=== PATIENT | female | born 1980 | race Caucasian/White ===

== ENCOUNTER → 2018-05-14 10:17 | Outpatient (CLI) | payer OTHER ==
[~2018-05-14 10:17] MED LIST: GILTUSS TR TAB1 EACH PO; SYNTHROID100 MCG; SYNTHROID100 MCG PO; SYNTHROID112 MCG PO; ZANTAC300 MG PO; ZITHROMAX TRI-500 MG PO; ZITHROMAX500 MG PO; ZYRTEC10 MG PO
== END | disposition home or self-care (01) ==
LOC: LAB 10:17
DX: E55.9 Vitamin D deficiency, unspecified (principal); E78.4 Other hyperlipidemia; Z13.9 Encounter for screening, unspecified; R73.9 Hyperglycemia, unspecified; R94.6 Abnormal results of thyroid function studies

== ENCOUNTER 2018-06-28 09:04 | Outpatient (CLI) | payer OTHER | END 2018-06-28 09:46 | disposition home or self-care (01) | LOC: SONOGRAMA 09:04 | DX: N63.41 Unspecified lump in right breast, subareolar (principal); N60.11 Diffuse cystic mastopathy of right breast; N60.12 Diffuse cystic mastopathy of left breast ==

== ENCOUNTER 2018-12-27 08:36 | Outpatient (CLI) | payer OTHER ==
[~2018-12-27] VITALS: Ht 152.4 cm; Wt 63.5 kg
== END 2018-12-27 09:00 | disposition home or self-care (01) ==
LOC: OFIC 805 08:36
DX: H61.23 Impacted cerumen, bilateral (principal); J01.80 Other acute sinusitis

== ENCOUNTER 2019-12-30 06:19 | Outpatient (CLI) | payer OTHER | END 2019-12-30 06:30 | disposition home or self-care (01) | LOC: LAB 06:19 | DX: G43.019 Migraine without aura, intractable, without status migrainosus (principal); E06.3 Autoimmune thyroiditis; E04.2 Nontoxic multinodular goiter; D50.0 Iron deficiency anemia secondary to blood loss (chronic); E55.9 Vitamin D deficiency, unspecified; E56.8 Deficiency of other vitamins; N92.1 Excessive and frequent menstruation with irregular cycle ==

== ENCOUNTER 2020-01-28 09:12 | Outpatient (CLI) | payer OTHER | END 2020-01-28 09:22 | disposition home or self-care (01) | LOC: LAB 09:12 | DX: J11.1 Influenza due to unidentified influenza virus with other respiratory manifestations (principal); R05 Cough ==

== ENCOUNTER 2020-01-28 10:54 | Emergency (ER) | payer OTHER ==
[~2020-01-28] VITALS: Ht 154.9 cm; Wt 63.5 kg
== END 2020-01-28 12:36 | disposition home or self-care (01) ==
LOC: ER 10:54
DX: N93.8 Other specified abnormal uterine and vaginal bleeding (principal)

== ENCOUNTER 2020-01-30 08:26 | Outpatient (CLI) | payer OTHER | END 2020-01-30 08:49 | disposition home or self-care (01) | LOC: LAB 08:26 | DX: R00.0 Tachycardia, unspecified (principal) ==

== ENCOUNTER → 2020-01-30 | Emergency (ER) | payer OTHER | END | disposition left against medical advice (07) | LOC: ER 09:45 | DX: Z53.20 Procedure and treatment not carried out because of patient's decision for unspecified reasons (principal) ==

== ENCOUNTER 2020-02-03 09:08 | Outpatient (CLI) | payer OTHER | END 2020-02-03 09:17 | disposition home or self-care (01) | LOC: LAB 09:08 | DX: D64.89 Other specified anemias (principal) ==

== ENCOUNTER 2020-03-01 05:29 | Day surgery (SDC) | payer OTHER ==
[~2020-03-01] VITALS: Ht 154.9 cm; Wt 63.5 kg
--- NOTE | 2020-03-01 05:35 | NUR ---
SE RECIBE PACIENTE ALERTA Y ORIENTADA REFIERE VENIR A [place] DE EMERGENCIA REFERIDA POR EL INDICA EL DR. MITCHELL REALIZARA UN RASPE EL AYO DE HO. PACINETE REFIERE TENER SANGRADO VAGINAL DESDE EL 2019. AL MOMENTO PACIENTE NO PRESENTA DOLOR.
[2020-03-01] MEDS ORDERED: MEGESTROL ACETA40 MG PO (09:37)
[2020-03-01] MEDS ORDERED: INTEGRA PLUS C1 EACH PO (09:37)
== END 2020-03-01 09:00 | disposition home or self-care (01) ==
LOC: ER 05:29 → CIR.AMB 05:30 → O/R 05:51 → ER 05:51 → SEC-K 05:51 → CIR.AMB 09:00 → EDSTATUS 10:00 → SEC-K 10:33 → O/R 10:33
DX: D26.1 Other benign neoplasm of corpus uteri (principal)

== ENCOUNTER → 2020-06-02 06:09 | Outpatient (CLI) | payer OTHER ==
[~2020-06-02 06:09] MED LIST changes: +INTEGRA PLUS C1 EACH PO; +MEGESTROL ACETA40 MG PO
== END | disposition home or self-care (01) ==
LOC: LAB 06:09
PROVIDERS: ATTEND General Practice
DX: E04.2 Nontoxic multinodular goiter (principal); E06.3 Autoimmune thyroiditis; D50.0 Iron deficiency anemia secondary to blood loss (chronic); E55.9 Vitamin D deficiency, unspecified; E56.8 Deficiency of other vitamins; N92.1 Excessive and frequent menstruation with irregular cycle

== ENCOUNTER 2020-12-01 06:16 | Outpatient (CLI) | payer OTHER | END 2020-12-01 06:26 | disposition home or self-care (01) | LOC: LAB 06:16 | PROVIDERS: ATTEND Obstetrics & Gynecology | DX: E03.8 Other specified hypothyroidism (principal); I10 Essential (primary) hypertension; Z00.00 Encounter for general adult medical examination without abnormal findings; E78.00 Pure hypercholesterolemia, unspecified; N39.0 Urinary tract infection, site not specified; Z11.4 Encounter for screening for human immunodeficiency virus [HIV]; E55.9 Vitamin D deficiency, unspecified; Z21 Asymptomatic human immunodeficiency virus [HIV] infection status; R79.89 Other specified abnormal findings of blood chemistry ==

== ENCOUNTER → 2020-12-02 06:12 | Outpatient (CLI) | payer OTHER | END | disposition home or self-care (01) | LOC: LAB 06:12 | PROVIDERS: ATTEND Obstetrics & Gynecology | DX: E03.8 Other specified hypothyroidism (principal); E78.00 Pure hypercholesterolemia, unspecified; N39.0 Urinary tract infection, site not specified; Z00.00 Encounter for general adult medical examination without abnormal findings; I10 Essential (primary) hypertension; Z11.4 Encounter for screening for human immunodeficiency virus [HIV]; Z12.11 Encounter for screening for malignant neoplasm of colon; E55.9 Vitamin D deficiency, unspecified; Z21 Asymptomatic human immunodeficiency virus [HIV] infection status; R79.89 Other specified abnormal findings of blood chemistry ==

== ENCOUNTER → 2021-03-08 06:16 | Outpatient (CLI) | payer OTHER ==
[~2021-03-08 06:16] MED LIST changes: +LIPITOR20 MG; +ORTHO DF 3,7751 EACH
== END | disposition home or self-care (01) ==
LOC: LAB 06:16
PROVIDERS: ATTEND Obstetrics & Gynecology
DX: D64.9 Anemia, unspecified (principal)

== ENCOUNTER 2021-03-19 10:06 | Emergency (ER) | payer OTHER ==
[~2021-03-19] VITALS: Ht 154.9 cm; Wt 64.4 kg
[~2021-03-19 10:06] MED LIST changes: -LIPITOR20 MG; -ORTHO DF 3,7751 EACH
[2021-03-19] MEDS ORDERED: ORTHO DF 3,7751 EACH (10:19)
[2021-03-19] MEDS ORDERED: LIPITOR20 MG (10:19)
== END 2021-03-19 12:33 | disposition home or self-care (01) ==
LOC: ER 10:06
DX: S90.02XA Contusion of left ankle, initial encounter (principal); W10.8XXA Fall (on) (from) other stairs and steps, initial encounter; Y93.89 Activity, other specified; Y92.830 Public park as the place of occurrence of the external cause; Y99.8 Other external cause status

== ENCOUNTER → 2021-03-30 07:31 | Outpatient (CLI) | payer OTHER ==
[~2021-03-30 07:31] MED LIST changes: +LIPITOR20 MG; +ORTHO DF 3,7751 EACH
== END | disposition home or self-care (01) ==
LOC: LAB 07:31
DX: U07.1 COVID-19 (principal); Z11.52 Encounter for screening for COVID-19; Z20.828 Contact with and (suspected) exposure to other viral communicable diseases

== ENCOUNTER → 2021-05-27 06:10 | Outpatient (CLI) | payer OTHER | END | disposition home or self-care (01) | LOC: LAB 06:10 | PROVIDERS: ATTEND General Practice | DX: E06.3 Autoimmune thyroiditis (principal); E04.2 Nontoxic multinodular goiter; D50.0 Iron deficiency anemia secondary to blood loss (chronic); E55.9 Vitamin D deficiency, unspecified; E56.8 Deficiency of other vitamins; N92.1 Excessive and frequent menstruation with irregular cycle ==

== ENCOUNTER 2022-05-26 06:43 | Outpatient (CLI) | payer OTHER ==
[~2022-05-26 06:43] MED LIST changes: +ACETAMINOPHEN500 M1 PO; +ATORVASTATIN CA10 MG PO; +CLEOCIN HCL300 MG PO; +CODE1TAB37 PO; +LIPITOR20 MG PO; +NEURONTIN600 MG PO; +SIMETHICONE125 M1 PO; +VITAMIN D PO; +VITAMIN D3125 MCG
== END 2022-05-26 07:05 | disposition home or self-care (01) ==
LOC: LAB 06:43
PROVIDERS: ATTEND General Practice
DX: E06.3 Autoimmune thyroiditis (principal); E04.2 Nontoxic multinodular goiter; D50.0 Iron deficiency anemia secondary to blood loss (chronic); E55.9 Vitamin D deficiency, unspecified; E56.8 Deficiency of other vitamins; N92.1 Excessive and frequent menstruation with irregular cycle

== ENCOUNTER 2022-10-19 06:07 | Outpatient (CLI) | payer OTHER | END 2022-10-19 06:09 | disposition home or self-care (01) | LOC: LAB 06:07 | PROVIDERS: ATTEND General Practice | DX: R73.01 Impaired fasting glucose (principal); E06.3 Autoimmune thyroiditis; E04.2 Nontoxic multinodular goiter; D50.0 Iron deficiency anemia secondary to blood loss (chronic); E55.9 Vitamin D deficiency, unspecified; E56.8 Deficiency of other vitamins; N92.1 Excessive and frequent menstruation with irregular cycle; Z13.1 Encounter for screening for diabetes mellitus; N95.1 Menopausal and female climacteric states ==

== ENCOUNTER 2023-04-13 06:08 | Outpatient (CLI) | payer OTHER | END 2023-04-13 06:11 | disposition home or self-care (01) | LOC: LAB 06:08 | PROVIDERS: ATTEND Obstetrics & Gynecology | DX: Z00.00 Encounter for general adult medical examination without abnormal findings (principal); I10 Essential (primary) hypertension; E03.9 Hypothyroidism, unspecified; E78.00 Pure hypercholesterolemia, unspecified; N39.0 Urinary tract infection, site not specified; Z11.4 Encounter for screening for human immunodeficiency virus [HIV]; Z12.11 Encounter for screening for malignant neoplasm of colon; E55.9 Vitamin D deficiency, unspecified; Z21 Asymptomatic human immunodeficiency virus [HIV] infection status; R79.9 Abnormal finding of blood chemistry, unspecified; R79.89 Other specified abnormal findings of blood chemistry ==

== ENCOUNTER 2023-04-18 06:34 | Outpatient (CLI) | payer OTHER | END 2023-04-18 06:50 | disposition home or self-care (01) | LOC: LAB 06:34 | PROVIDERS: ATTEND Obstetrics & Gynecology | DX: Z12.11 Encounter for screening for malignant neoplasm of colon (principal); Z00.00 Encounter for general adult medical examination without abnormal findings; I10 Essential (primary) hypertension; E03.9 Hypothyroidism, unspecified; Z11.4 Encounter for screening for human immunodeficiency virus [HIV]; E55.9 Vitamin D deficiency, unspecified; Z21 Asymptomatic human immunodeficiency virus [HIV] infection status; R79.89 Other specified abnormal findings of blood chemistry ==

== ENCOUNTER → 2023-12-04 06:25 | Outpatient (CLI) | payer OTHER ==
[2023-12-04 07:13] LABS: HEMOGLOBIN 13.6 g/dL (12.0-15.00); MEAN CELL VOLUME 90.4 fL (80.00-100.00); MEAN CORPUSCULAR HEMOGLOBIN 30.8 pg (27.00-32.0); MEAN CORPUSCULAR HGB CONC 34.1 g/dl (32.0-36.0); PLATELET COUNT 201 K/uL (150-450); RED BLOOD COUNT 4.43 M/uL (4.00-6.00); RED CELL DISTRIBUTION WIDTH 13.8 % (11.5-14.5)
[2023-12-04 07:41] LABS: ALBUMIN 3.5 gm/dL (3.4-5.0); BILIRUBIN TOTAL 0.39 mg/dL (0.3-1.2); CALCIUM 8.8 mg/dL (8.5-10.1); CHOL HDL RATIO 3.3 (0-5.0); CREATININE SERUM 0.61 mg/dL (0.55-1.02); GFR 106.06; GLOBULINA 3.1 G/DL (2.4-3.5); POTASSIUM 3.79 mEq/L (3.5-5.1); T4 FREE 1.02 NG/ML (0.76-1.46); TOTAL PROTEIN 6.6 gm/dL (6.4-8.2); TSH 1.1 uIU/mL (0.358-3.74)
== END | disposition home or self-care (01) ==
LOC: LAB 06:25
PROVIDERS: ATTEND General Practice
DX: R73.01 Impaired fasting glucose (principal); E06.3 Autoimmune thyroiditis; E04.2 Nontoxic multinodular goiter; D50.0 Iron deficiency anemia secondary to blood loss (chronic); E55.9 Vitamin D deficiency, unspecified; E56.8 Deficiency of other vitamins; N92.1 Excessive and frequent menstruation with irregular cycle; Z13.1 Encounter for screening for diabetes mellitus; N95.1 Menopausal and female climacteric states

== ENCOUNTER 2024-07-01 06:40 | Outpatient (CLI) | payer OTHER ==
[2024-07-01 07:32] LABS: HEMATOCRIT 39.3 % (36.0-45.00); HEMOGLOBIN 13.5 g/dL (12.0-15.00); MEAN CELL VOLUME 90.4 fL (80.00-100.00); MEAN CORPUSCULAR HGB CONC 34.3 g/dl (32.0-36.0); PLATELET COUNT 218 K/uL (150-450); RED BLOOD COUNT 4.34 M/uL (4.00-6.00); RED CELL DISTRIBUTION WIDTH 13.6 % (11.5-14.5)
[2024-07-01 07:34] LABS: PH,URINE 6.5 (5.0-8.0); URINE APPEARANCE Clear; URINE BILIRRUBIN Negative (NEGATIVE); URINE BLOOD Negative; URINE COLOR Yellow; URINE GLUCOSE Negative (NEGATIVE); URINE KETONE Negative (NEGATIVE); URINE LEUKOCYTE Negative; URINE NITRATE Negative; URINE PROTEIN Negative (NEGATIVE); URINE UROBILINOGEN 0.2 E.U./dl
[2024-07-01 07:38] LABS: URINE BACTERIA 56.6 uL (0.0-1933); URINE RBC 3.8 uL (0.0-20.8)
[2024-07-01 08:23] LABS: ALBUMIN 3.6 gm/dL (3.4-5.0); BILIRUBIN TOTAL 0.45 mg/dL (0.3-1.2); CALCIUM 8.7 mg/dL (8.5-10.1); CHOL HDL RATIO 3.7 (0-5.0); CREATININE SERUM 0.65 mg/dL (0.55-1.02); GFR 98.13; POTASSIUM 4.14 mEq/L (3.5-5.1); T4 FREE 1.04 NG/ML (0.76-1.46); TOTAL PROTEIN 6.6 gm/dL (6.4-8.2)
== END 2024-07-01 07:17 | disposition home or self-care (01) ==
LOC: LAB 06:40
PROVIDERS: ATTEND Obstetrics & Gynecology
DX: E03.9 Hypothyroidism, unspecified (principal); E78.00 Pure hypercholesterolemia, unspecified; N39.0 Urinary tract infection, site not specified; Z11.4 Encounter for screening for human immunodeficiency virus [HIV]; Z12.11 Encounter for screening for malignant neoplasm of colon; E55.9 Vitamin D deficiency, unspecified; Z21 Asymptomatic human immunodeficiency virus [HIV] infection status; R79.9 Abnormal finding of blood chemistry, unspecified; R79.89 Other specified abnormal findings of blood chemistry; Z00.00 Encounter for general adult medical examination without abnormal findings; R10.13 Epigastric pain; R14.1 Gas pain

== ENCOUNTER 2024-07-08 06:03 | Outpatient (CLI) | payer OTHER ==
[2024-07-08 06:18] LABS: ob NEGATIVE (NEGATIVE)
== END 2024-07-08 06:08 | disposition home or self-care (01) ==
LOC: LAB 06:03
PROVIDERS: ATTEND Obstetrics & Gynecology
DX: E03.9 Hypothyroidism, unspecified (principal); I10 Essential (primary) hypertension; Z00.00 Encounter for general adult medical examination without abnormal findings; E78.00 Pure hypercholesterolemia, unspecified; N39.0 Urinary tract infection, site not specified; Z11.4 Encounter for screening for human immunodeficiency virus [HIV]; Z12.11 Encounter for screening for malignant neoplasm of colon; E55.9 Vitamin D deficiency, unspecified; Z21 Asymptomatic human immunodeficiency virus [HIV] infection status; R79.9 Abnormal finding of blood chemistry, unspecified; R79.89 Other specified abnormal findings of blood chemistry

== ENCOUNTER 2024-12-05 06:21 | Outpatient (CLI) | payer OTHER ==
[2024-12-05 07:00] LABS: HEMATOCRIT 40.3 % (36.0-45.00); HEMOGLOBIN 13.9 g/dL (12.0-15.00); MEAN CELL VOLUME 89.4 fL (80.00-100.00); MEAN CORPUSCULAR HEMOGLOBIN 30.8 pg (27.00-32.0); MEAN CORPUSCULAR HGB CONC 34.4 g/dl (32.0-36.0); PLATELET COUNT 204 K/uL (150-450); RED BLOOD COUNT 4.51 M/uL (4.00-6.00); RED CELL DISTRIBUTION WIDTH 13.8 % (11.5-14.5)
[2024-12-05 07:02] LABS: PH,URINE 5.5 (5.0-8.0); URINE APPEARANCE Clear; URINE BILIRRUBIN Negative (NEGATIVE); URINE BLOOD Negative; URINE COLOR Yellow; URINE GLUCOSE Negative (NEGATIVE); URINE KETONE Negative (NEGATIVE); URINE LEUKOCYTE Negative; URINE NITRATE Negative; URINE PROTEIN Negative (NEGATIVE); URINE UROBILINOGEN 0.2 E.U./dl
[2024-12-05 07:03] LABS: URINE BACTERIA 250.8 uL (0.0-1933); URINE EPITHELIAL CELLS 7.4 uL (0.0-38.8); URINE RBC 3.9 uL (0.0-20.8); URINE WBC 2.8 uL (0.0-23.2)
[2024-12-05 07:24] LABS: ALBUMIN 3.6 gm/dL (3.4-5.0); BILIRUBIN TOTAL 0.31 mg/dL (0.3-1.2); CALCIUM 8.8 mg/dL (8.5-10.1); CHOL HDL RATIO 3.3 (0-5.0); CREATININE SERUM 0.68 mg/dL (0.55-1.02); GFR 93.15; POTASSIUM 4.1 mEq/L (3.5-5.1); T4 FREE 0.89 NG/ML (0.76-1.46); TOTAL PROTEIN 6.6 gm/dL (6.4-8.2); TSH 2.55 uIU/mL (0.358-3.74)
== END 2024-12-05 06:22 | disposition home or self-care (01) ==
LOC: LAB 06:21
PROVIDERS: ATTEND General Practice
DX: R73.01 Impaired fasting glucose (principal); E06.3 Autoimmune thyroiditis; E04.2 Nontoxic multinodular goiter; D50.0 Iron deficiency anemia secondary to blood loss (chronic); E55.9 Vitamin D deficiency, unspecified; E56.8 Deficiency of other vitamins; N92.1 Excessive and frequent menstruation with irregular cycle; Z13.1 Encounter for screening for diabetes mellitus; N95.1 Menopausal and female climacteric states

== ENCOUNTER 2025-05-21 06:14 | Outpatient (CLI) | payer OTHER ==
[2025-05-21 07:10] LABS: URINE APPEARANCE Clear; URINE BILIRRUBIN Negative (NEGATIVE); URINE BLOOD Negative; URINE COLOR Yellow; URINE GLUCOSE Negative (NEGATIVE); URINE KETONE Negative (NEGATIVE); URINE LEUKOCYTE Negative; URINE NITRATE Negative; URINE PROTEIN Negative (NEGATIVE); URINE UROBILINOGEN 0.2 E.U./dl
[2025-05-21 07:14] LABS: URINE BACTERIA 393.5 uL (0.0-1933); URINE EPITHELIAL CELLS 11.2 uL (0.0-38.8); URINE RBC 8.6 uL (0.0-20.8); URINE WBC 3.9 uL (0.0-23.2)
[2025-05-21 07:26] LABS: BASO % 0.9 % (0.1-1.2); EOS # 0.14 (0.04-0.54); EOS % 1.9 % (0.7-7.0); LYMPH # 1.88 (1.18-3.74); LYMPH % 25.5 % (19.3-53.1); MEAN PLATELET VOLUME 11.60 fl (9.4-12.4); MONO # 0.45 (0.24-0.82); MONO % 6.1 % (4.7-12.5); NEUT # 4.82 (1.56-6.13); NEUT % 65.5 % (34.0-71.1); RED CELL DISTRIBUTION WIDTH 13.5 % (11.6-14.4)
[2025-05-21 07:30] LABS: URINE CAST 0.00 uL (0.0-1.40)
[2025-05-21 09:02] LABS: ALT/SGPT 21.0 U/L (12-78); AST/SGOT 10.0 U/L (15-37); BILIRUBIN TOTAL 0.48 mg/dL (0.3-1.2); BUN CREA RATIO 24.0 (7.0-25.0); CHOL HDL RATIO 3.5 (0-5.0); CREATININE SERUM 0.63 mg/dL (0.55-1.02); GFR 101.29; GLOBULINA 3.2 G/DL (2.4-3.5); GLUCOSE FASTING 83.0 mg/dL (65-100); HDL 68.0 mg/dl (40-60); LDL 133.0 mg/dl (0-130); OSMOLALITY SERUM 281.0 MOSM/KG (275-295); T4 FREE 0.93 NG/ML (0.76-1.46); TSH 4.14 uIU/mL (0.358-3.74); VLDL 33.0 (0-39)
== END 2025-05-21 06:25 | disposition home or self-care (01) ==
LOC: LAB 06:14
PROVIDERS: ATTEND General Practice
DX: R73.01 Impaired fasting glucose (principal); E06.3 Autoimmune thyroiditis; E04.2 Nontoxic multinodular goiter; D50.0 Iron deficiency anemia secondary to blood loss (chronic); E55.9 Vitamin D deficiency, unspecified; E56.8 Deficiency of other vitamins; N92.1 Excessive and frequent menstruation with irregular cycle; Z13.1 Encounter for screening for diabetes mellitus; N95.1 Menopausal and female climacteric states

== ENCOUNTER 2025-10-06 06:12 | Outpatient (CLI) | payer OTHER ==
[2025-10-06 07:19] LABS: BASO % 0.9 % (0.1-1.2); EOS # 0.13 (0.04-0.54); EOS % 2.2 % (0.7-7.0); LYMPH # 1.65 (1.18-3.74); LYMPH % 28.3 % (19.3-53.1); MEAN PLATELET VOLUME 11.70 fl (9.4-12.4); MONO # 0.30 (0.24-0.82); MONO % 5.1 % (4.7-12.5); NEUT # 3.70 (1.56-6.13); NEUT % 63.3 % (34.0-71.1); RED CELL DISTRIBUTION WIDTH 12.7 % (11.6-14.4)
[2025-10-06 08:04] LABS: ALT/SGPT 24.0 U/L (12-78); AST/SGOT 17.0 U/L (15-37); BILIRUBIN TOTAL 0.39 mg/dL (0.3-1.2); BUN CREA RATIO 29.0 (7.0-25.0); CHOL HDL RATIO 3.1 (0-5.0); CREATININE SERUM 0.63 mg/dL (0.55-1.02); GFR 101.29; GLOBULINA 3.1 G/DL (2.4-3.5); GLUCOSE FASTING 104.0 mg/dL (65-100); HDL 76.0 mg/dl (40-60); LDL 145.0 mg/dl (0-130); OSMOLALITY SERUM 285.0 MOSM/KG (275-295); T3 UPTAKE 36.0 % (30-39); T4 TOTAL 8.29 UG/DL (4.8-13.9); TSH 1.17 uIU/mL (0.358-3.74); VLDL 12.0 (0-39)
[2025-10-06 09:37] LABS: CORTISOL 10.27 ug/dl; T3 TOTAL 0.87 ng/ml (0.846-2.02); VITAMIN D3 25 HYDROXY 33.5 ng/ml (30-120)
[2025-10-07 10:07] LABS: DHEA-SULFATE 146.0 ug/dL (41.2-243.7); ESTRADIOL SERUM < 5.0 pg/mL (.); LEUTEINIZING HORMONE 46.1 mIU/mL (.); PROGESTERONA 0.1 ng/mL (.); PROLACTIN 13.5 ng/mL (4.8-33.4)
== END 2025-10-06 06:25 | disposition home or self-care (01) ==
LOC: LAB 06:12
DX: E03.9 Hypothyroidism, unspecified (principal); E78.00 Pure hypercholesterolemia, unspecified; N91.0 Primary amenorrhea; E55.9 Vitamin D deficiency, unspecified; Z21 Asymptomatic human immunodeficiency virus [HIV] infection status; R79.89 Other specified abnormal findings of blood chemistry; Z00.00 Encounter for general adult medical examination without abnormal findings; I10 Essential (primary) hypertension

== ENCOUNTER 2025-10-07 06:30 | Outpatient (CLI) | payer OTHER ==
[2025-10-07 07:18] LABS: ob NEGATIVE (NEGATIVE)
== END 2025-10-07 06:38 | disposition home or self-care (01) ==
LOC: LAB 06:30
DX: E03.9 Hypothyroidism, unspecified (principal); I10 Essential (primary) hypertension; Z00.00 Encounter for general adult medical examination without abnormal findings; E78.00 Pure hypercholesterolemia, unspecified; N91.0 Primary amenorrhea; E55.9 Vitamin D deficiency, unspecified; Z21 Asymptomatic human immunodeficiency virus [HIV] infection status; R79.9 Abnormal finding of blood chemistry, unspecified; R79.89 Other specified abnormal findings of blood chemistry